=== PATIENT | female | born 1955 | race Caucasian/White ===

== ENCOUNTER 2016-06-07 08:38 | Emergency (ER) | payer MEDICAID ==
[2016-06-07 09:19] LABS: Hematocrit 40.3 % (37.0-47.0); Hemoglobin 13.3 gm/dL (12.5-16.0); Mean Cell Volume 87.8 fl (78-100); Mean Platelet Volume 10.6 fl (6.0-9.5); Neutrophil # 3.2 K/mm3 (1.3-6.0); Neutrophil % 66.9 % (42-75.0); Platelet Count 225 K/mm3 (150-450); Red Blood Count 4.59 M/mm3 (4.2-5.4); Red Cell Distribution Width 13.3 % (11.5-14.0); White Blood Count 4.7 K/mm3 (4.0-10.5)
[2016-06-07 09:35] LABS: Prothrombin Time (Patient) 10.7 Seconds (9.4-11.4)
[2016-06-07 09:36] LABS: ALT 37 U/L (19-67); AST 21 U/L (0-48); Albumin * 4.1 gm/dl (3.4-5.0); Alkaline Phosphatase * 56 U/L (50-170); Anion Gap 12.1 mmol/L (6.8-13.8); BUN/Creatinine Ratio 22.5 (9.0-21.6); Bilirubin, Total 0.5 mg/dL (0.0-1.1); Blood Urea Nitrogen 20 mg/dL (3-23); Ca. Corrected For Albumin 8.6 mg/dL (8.4-10.2); Carbon Dioxide 29.8 mmol/L (24-32.6); Chloride 106 mmol/L (97-106); Glucose * 123 mg/dL (70-110); INR 1.03 INR (0.90-1.10); Partial Thrombolplastin Time 25.2 Seconds (24-32); Potassium 3.9 mmol/L (3.4-4.6); Sodium 144 mmol/L (132-142); Total Protein 7.1 gm/dL (6.2-8.2); Troponin I Less than 0.017 ng/ml (0.00-0.10)
[2016-06-07] MEDS ORDERED: CLONIDINE HCL 0.1 MG TABLET PO ONE (10:26)
[2016-06-07] MEDS ORDERED: ASPIRIN 325 MG TABLET.DR PO ONE (10:30)
[2016-06-07] MEDS ORDERED: ASPIRIN 325 MG TABLET.DR ONE (10:33)
[2016-06-07] MEDS ORDERED: CLONIDINE HCL 0.1 MG TABLET ONE (10:33)
--- NOTE | 2016-06-07 10:51 | ERNOTE ---
Medical Problem HPI - Narrative Date of Service: 06/07/16 - General Chief Complaint: General Assessment Time Seen by Provider: 06/07/16 08:57 Source: patient Exam Limitations: no limitations - Immun/Allergies/Home Medications Allergies/Adverse Reactions: Allergies DELIA Inhibitors Adverse Reaction (Verified 06/07/16 10:34) Home Medications: HOME MEDICATIONS Clonidine HCl [Catapres] 0.1 mg PO DAILY 06/07/16 [Last Taken Unknown] Diclofenac Sodium [Voltaren] 75 mg PO BID 06/07/16 [Last Taken Unknown] Fenofibrate [Lofibra] 160 mg PO DAILY 06/07/16 [Last Taken Unknown] Losartan/Hydrochlorothiazide [Losartan-Hctz 100-12.5 mg Tab] 1 each PO DAILY [Last Taken Unknown] Ranitidine HCl [Zantac] 150 mg PO BID 06/07/16 [Last Taken Unknown] Sertraline HCl [Zoloft] 50 mg PO DAILY 06/07/16 [Last Taken Unknown] - Pain Score Pain Score #1 Pain Score: 0 - History of Present History Narrative: Patient came for evaluation due to confusion that lasted seconds this morning. Patient with no loss of force, no syncopal event, no chest pain, no headache, and no passing out. Patient reported no loss of activity or movement in any extremity. Patient with no Hx of Tx reported at the moment. Timing: resolved prior to arrival, gone now Severity: mild Modifying Factors - (Improves): Present: other - Nothing Modifying Factors - (Worsens): Present: other - Nothing Review of Systems - Review of Systems Constitutional: Present: no symptoms reported EYE: Present: no symptoms reported ENT: Present: no symptoms reported Respiratory: Present: no symptoms reported Cardiology: Present: no symptoms reported Gastrointestinal/Abdominal: Present: no symptoms reported Genitourinary: Present: no symptoms reported Musculoskeletal: Present: no symptoms reported. Absent: back pain, muscle pain , muscle stiffness, neck pain, joint pain, joint swelling Skin: Present: no symptoms reported. Absent: rash Neurological: Present: other - Confusion. Absent: anxiety, depressed, emotional problems, headache, dizziness/light-headedness, seizure, weakness, numbness, tingling, tremors Endocrine: Present: no symptoms reported Hematologic/Lymphatic: Absent: easy bruising, easy bleeding Psych: Present: no symptoms reported - Patient's Past Medical History Patient History - Cancer: No Hx of Cancer Patient History - Surgical Procedures: Appendectomy, T & A - Social History Living Situations: home Alcohol Use: none Drug Use: none Physical Exam - Physical Exam General Appearance: Present: wd/wn, alert, no apparent distress Eye Exam: Normal inspection: bilateral, PERRL: bilateral, EOMI: bilateral Ears, Nose, Throat: Present: normal ENT inspection, hearing grossly normal, normal pharynx Neck: Present: normal inspection, nontender Respiratory: Present: no respiratory distress, normal breath sounds, no accessory muscle use, chest nontender, lungs clear Cardiovascular/Chest: Present: regular rate, rhythm, normal peripheral pulses, systolic murmur Peripheral Pulses: N=norm/S=strong/W=weak/B=bound/A=absent: Carotid (R): Normal , Carotid (L): Normal, Radial (R): Normal, Radial (L): Normal, Dorsalis-pedis (R ): Normal, Dorsalis-pedis (L): Normal Gastrointestinal/Abdominal: Present: normal bowel sounds, nontender, nondistended, soft, no organomegaly Rectal Exam: Present: nontender, normal rectal tone Back Exam: Present: normal inspection, normal range of motion, no CVA tenderness , no vertebral tenderness Extremity Exam: Present: normal inspection, non-tender, no edema, normal range of motion Neurological Exam: Present: alert, oriented, normal mood/affect, no motor/ sensory deficits DTR: N=norm/NB=norm/brisk/A=abs/DD=dull/dimin/HC=hyperactive: Bicep (R): Normal , Bicep (L): Normal, Knee (R): Normal, Knee (L): Normal Skin Exam: Present: normal color, warm/dry Lymphatic Exam: Present: no adenopathy ED Progress - Date and Time Seen: Date and Time: 06/07/16 10:42 Patient at the moment has a NIH Stroke Scale: 0 06/07/16 10:47 Patient with ABCD2 Score of 2 points (HTN, Age) with a low probability for TIA/ CVA. Patient can follow up with PCP and ASA will be started. BP will be managed. - Results and Orders Patient's Lab Results:: I have reviewed the patient's lab results. - Vital Signs Patient's Vital Signs:: I have reviewed the patient's vital signs. Vital Signs: Vital Signs 06/07/16 08:44 Temperature 35.6 C L Pulse Rate 89 Respiratory 12 Rate Blood Pressure 191/98 O2 Sat by Pulse 97 Oximetry - EKG EKG: NSR, no ST T wave changes EKG read: Interp. by me EKG Comments: HR: 78, No ST Elevation, LAD, LVH - X-Ray X-Ray #1 X-Ray: chest X-ray Comments: Radiology report noticed, no pathology reported - CT/Ultrasound CT/Ultrasound Narrative: Radiology report noticed. No intra cranial pathology noticed by Radiologist - Progress/Reassessment Chief Complaint: General Assessment Progress:: Re-examined - Transfer of Care Expected Disposition: Discharge Plan - Plan Plan: Patient is to continue evaluation out patient. BP is to be controlled and patient has agreed to return if event re-occurred Departure - Departure Clinical Impression: Confusion Disposition: Home self-care Condition: Stable Instructions: Confusion Additional Instructions: Please use your Clonidine 0.1mg PO two times a day and Start the use of Baby Aspirin 81mg daily
[2016-06-07 11:10] VITALS: BP 169/85
== END 2016-06-07 11:06 | disposition home or self-care (01) ==
LOC: ER 08:38
DX: R41.0 Disorientation, unspecified (principal)

== ENCOUNTER 2016-06-08 11:01 | Emergency (ER) | payer MEDICAID, OTHER ==
--- NOTE | 2016-06-08 11:30 | ERNOTE ---
Medical Problem HPI - Narrative Date of Service: 06/08/16 - General Chief Complaint: General Assessment Time Seen by Provider: 06/08/16 11:16 Source: patient Exam Limitations: no limitations - Immun/Allergies/Home Medications Immunizations: IMMUNIZATION HX Immunizations Up to Date Yes Allergies/Adverse Reactions: Allergies DELIA Inhibitors Adverse Reaction (Verified 06/08/16 11:08) Home Medications: HOME MEDICATIONS Clonidine HCl [Catapres] 0.1 mg PO DAILY 06/07/16 [Last Taken Unknown] Diclofenac Sodium [Voltaren] 75 mg PO BID 06/07/16 [Last Taken Unknown] Fenofibrate [Lofibra] 160 mg PO DAILY 06/07/16 [Last Taken Unknown] Losartan/Hydrochlorothiazide [Losartan-Hctz 100-12.5 mg Tab] 1 each PO DAILY [Last Taken Unknown] Ranitidine HCl [Zantac] 150 mg PO BID 06/07/16 [Last Taken Unknown] Sertraline HCl [Zoloft] 50 mg PO DAILY 06/07/16 [Last Taken Unknown] Hydrochlorothiazide [Hydrodiuril] 25 mg PO DAILY #30 tablet 06/08/16 [Last Taken Unknown] cloNIDine [Catapres-TTS 1] 0.2 mg TD BID #30 patch.tdwk 06/08/16 [Last Taken Unknown] - History of Present History Narrative: Patient was send due to an elevated Blood Pressure. Patient at the moment denies any chest pain and no headache Timing: constant Severity: mild Modifying Factors - (Improves): Present: other - Patient used her medication recently Modifying Factors - (Worsens): Present: other - Stress is bothering patient Review of Systems - Narrative Narrative: Patient was seen recently here and BP medication were changed. Patient has no PCP in the area to follow up. - Review of Systems Constitutional: Present: no symptoms reported EYE: Present: no symptoms reported ENT: Present: no symptoms reported Respiratory: Present: no symptoms reported Cardiology: Absent: chest pain, palpitations, syncope, edema, claudication Gastrointestinal/Abdominal: Present: no symptoms reported Genitourinary: Present: no symptoms reported Musculoskeletal: Present: no symptoms reported Skin: Present: no symptoms reported Neurological: Present: no symptoms reported Endocrine: Present: no symptoms reported Hematologic/Lymphatic: Present: no symptoms reported Psych: Present: anxiety - Patient's Past Medical History Patient History - Medical: No pertinent hx Patient History - Cancer: No Hx of Cancer Patient History - Surgical Procedures: Appendectomy, T & A - Social History Living Situations: home Smoking Status: Never smoker Have you smoked in the past 12 months: No Alcohol Use: none Drug Use: none Physical Exam - Physical Exam General Appearance: Present: wd/wn, alert, no apparent distress Eye Exam: Normal inspection: bilateral, PERRL: bilateral, EOMI: bilateral Ears, Nose, Throat: Present: normal ENT inspection, hearing grossly normal, normal pharynx Neck: Present: normal inspection, nontender Respiratory: Present: no respiratory distress, normal breath sounds, no accessory muscle use, chest nontender, lungs clear Cardiovascular/Chest: Present: regular rate, rhythm. Absent: chest tenderness, JVD Peripheral Pulses: N=norm/S=strong/W=weak/B=bound/A=absent: Carotid (R): Normal , Carotid (L): Normal, Radial (R): Normal, Radial (L): Normal, Dorsalis-pedis (R ): Normal, Dorsalis-pedis (L): Normal Gastrointestinal/Abdominal: Present: normal bowel sounds, nontender, nondistended, soft, no organomegaly Back Exam: Present: normal inspection, normal range of motion, no CVA tenderness , no vertebral tenderness Extremity Exam: Present: normal inspection, non-tender, no edema, normal range of motion Neurological Exam: Present: alert, oriented, normal mood/affect, no motor/ sensory deficits Skin Exam: Present: normal color, warm/dry Lymphatic Exam: Present: no adenopathy ED Progress - Date and Time Seen: Date and Time: 06/08/16 11:25 Patient BP has decreased to 176/84. Patient with no distress. Patient will be adjusted medications and will be discharge home. 06/08/16 11:30 Patient last visit and labs were noticed. No new labs were done today. - Vital Signs Patient's Vital Signs:: I have reviewed the patient's vital signs. Vital Signs: Vital Signs 06/08/16 11:05 Temperature 35.5 C L Pulse Rate 89 Respiratory 12 Rate Blood Pressure 180/104 O2 Sat by Pulse 96 Oximetry - Progress/Reassessment Chief Complaint: General Assessment Progress:: Improved - Transfer of Care Expected Disposition: Discharge Departure - Departure Clinical Impression: Hypertension Qualifiers: Hypertension type: essential hypertension Qualified Code(s): I10 - Essential ( primary) hypertension Disposition: Home self-care Condition: Stable Instructions: Hypertension, [id number] Additional Instructions: You can use two tablets of Clonidine 0.1mg two time a day. Please measure your Blood Pressure 1 hour after using this medication. Prescriptions: Hydrochlorothiazide [Hydrodiuril] 25 mg PO DAILY #30 tablet cloNIDine [Catapres-TTS 1] 0.2 mg TD BID #30 patch.tdwk
[2016-06-08 12:01] VITALS: BP 183/84
== END 2016-06-08 11:54 | disposition home or self-care (01) ==
LOC: ER 11:01
DX: I10 Essential (primary) hypertension (principal)